=== PATIENT | male | born 1995 | race Caucasian/White ===

== ENCOUNTER 2021-06-05 16:57 | Emergency (ER) | payer BC, SELFPAY ==
[2021-06-05] MEDS ORDERED: predniSONE 20 MG TAB ONE (17:28)
== END 2021-06-05 18:00 | disposition home or self-care (01) ==
LOC: BURERS 16:57
DX: L23.7 Allergic contact dermatitis due to plants, except food (principal)
CPT/HCPCS: 99283; J7512